=== PATIENT | female | born 1985 | race Hispanic/Latino ===

== ENCOUNTER 2018-04-17 07:44 | Emergency (ER) | payer OTHER, SELFPAY | END 2018-04-17 09:33 | disposition home or self-care (01) | LOC: ERS 07:44 | DX: B34.9 Viral infection, unspecified (principal); F17.210 Nicotine dependence, cigarettes, uncomplicated | CPT/HCPCS: 87804; 99283 ==

== ENCOUNTER 2018-10-29 15:55 | Emergency (ER) | payer SELFPAY ==
[2018-10-29 16:33] LABS: #Eosinphils 0.1 thou/uL (0.0-0.7); #Lymphocytes 2.3 thou/uL (1.20-3.40); #Monocytes 0.6 thou/uL (0.11-0.59); #Neutrophils 5.4 thou/uL (1.40-6.50); %Basophils 0.1 % (0.0-1.0); %Eosinophils 1.5 % (0.0-10.0); %Lymphocytes 27.7 % (21.0-51.0); %Monocytes 6.6 % (0.0-10.0); %Neutrophils 64.1 % (42.0-75.0); Hemoglobin 14.2 g/dL (12.0-16.0); Mean Corpuscular HGB CONC 34.2 g/dL (32.0-36.0); Mean Corpuscular Volume 90.5 fL (78.0-98.0); Mean Platelet Volume 9.5 fL (7.4-10.4); Platelet Count 274 thou/uL (130-400); RBC Distribution Width 11.8 % (11.5-14.5); Red Blood Cell (RBC) Count 4.59 mill/uL (4.20-5.40); White Blood Cell (WBC) Count 8.4 thou/uL (4.8-10.8)
[2018-10-29 16:55] LABS: ALT (SGPT) 22 U/L (8-55); AST (SGOT) 22 U/L (5-34); Albumin 3.9 g/dL (3.5-5.0); Alkaline Phosphatase 97 U/L (40-150); Anion Gap 12 mmol/L (10-20); BUN (Urea Nitrogen) 9 mg/dL (7.0-18.7); Bilirubin, Total 0.6 mg/dL (0.2-1.2); Calc. Creatinine Clearance 0 mL/min (70-130); Calcium 9.2 mg/dL (7.8-10.44); Carbon Dioxide 29 mmol/L (22-29); Chloride 102 mmol/L (98-107); Estimated GFR-MDRD 86; Globulin 2.9 g/dL (2.4-3.5); Glucose 111 mg/dL (70-105); Lipase 17 U/L (8-78); Potassium 3.6 mmol/L (3.5-5.1); Protein, Total 6.8 g/dL (6.0-8.3); Sodium 139 mmol/L (136-145)
[2018-10-29 17:05] LABS: BHCG - Serum Negative (NEGATIVE); Pregs Control Background? CLEAR/WHITE (CLR/WHITE); Pregs Control Bar Appear? YES (CONTROL BAR)
[2018-10-29] MEDS ORDERED: Iopamidol 370 76% 50 ML VIAL FS ONE (17:16)
[2018-10-29] MEDS ORDERED: ISOVUE-370 76%-LOCM 1 ML ONE (17:16)
[2018-10-29 19:13] LABS: Bilirubin Negative (Negative); Blood, Urine Negative (Negative); Glucose, Urine (Dipstick) Negative (Negative); Leukocyte Negative (Negative); Nitrite Negative (Negative); Protein, Urine (Dipstick) Negative (Neg-Trace); Urobilinogen 0.2 mg/dL (Less than 2)
[2018-10-29 19:14] LABS: Clarity Cloudy (Clear)
[2018-10-29] MEDS ORDERED: Ondansetron PF 4 MG/2 ML Vial ONE (21:51)
[2018-10-29] MEDS ORDERED: Morphine 4 MG/ML VIAL ONE (21:51)
--- NOTE | 2018-10-29 22:20 | CT ---
CT abdomen and pelvis with IV and oral contrast HISTORY: Abdomen pain. FINDINGS: Lung bases are clear. Solid organs of the abdomen and pelvis are intact. Urinary bladder is unremarkable. At the central anterior upper abdomen, associated with the inferior aspect of the mid transverse colo n, an oval area of inflammation and fat stranding measures up to 0.7 cm diameter and contains central fat density. There is circumferential wall thickening of the colon at this level. No signific ant diverticula of the colon are apparent elsewhere. No free air or free fluid. IMPRESSION: Short segment inflammation involving and adjacent to the mid transverse colon. Given that there is fat within the area of greatest inflammation, epiploic appendagitis is the favored diagnosis. Underlying neoplastic process cannot be excluded with this appearance. Please consider cyn ntual endoscopic evaluation.
[2018-10-29] MEDS ORDERED: Ketorolac Tromethamine 30 MG/ML VIAL ONE (23:13)
== END 2018-10-29 23:21 | disposition home or self-care (01) ==
LOC: ERS 15:55
DX: K63.89 Other specified diseases of intestine (principal); F17.210 Nicotine dependence, cigarettes, uncomplicated; Z71.6 Tobacco abuse counseling
CPT/HCPCS: 36415; 74177; 80053; 81003; 83690; 84703; 85025; 96361; 96374; 96375; J1885; J2270; J2405; Q9966; Q9967

== ENCOUNTER 2018-10-30 16:09 | Observation (INO) | payer SELFPAY ==
[2018-10-30 16:35] LABS: #Basophils 0.1 thou/uL (0.0-0.2); #Eosinphils 0.1 thou/uL (0.0-0.7); #Lymphocytes 2.2 thou/uL (1.20-3.40); #Monocytes 0.5 thou/uL (0.11-0.59); #Neutrophils 5.6 thou/uL (1.40-6.50); %Basophils 0.8 % (0.0-1.0); %Eosinophils 0.8 % (0.0-10.0); %Lymphocytes 26.4 % (21.0-51.0); %Monocytes 6.3 % (0.0-10.0); %Neutrophils 65.8 % (42.0-75.0); Hemoglobin 14.3 g/dL (12.0-16.0); Mean Corpuscular HGB CONC 33.2 g/dL (32.0-36.0); Mean Corpuscular Hemoglobin 30.1 pg (27.0-31.0); Mean Corpuscular Volume 90.7 fL (78.0-98.0); Platelet Count 294 thou/uL (130-400); RBC Distribution Width 11.8 % (11.5-14.5); Red Blood Cell (RBC) Count 4.75 mill/uL (4.20-5.40); White Blood Cell (WBC) Count 8.4 thou/uL (4.8-10.8)
[2018-10-30 16:56] LABS: ALT (SGPT) 24 U/L (8-55); AST (SGOT) 19 U/L (5-34); Albumin 4.2 g/dL (3.5-5.0); Alkaline Phosphatase 101 U/L (40-150); Anion Gap 11 mmol/L (10-20); BUN (Urea Nitrogen) 7 mg/dL (7.0-18.7); Bilirubin, Total 0.7 mg/dL (0.2-1.2); Calc. Creatinine Clearance 0 mL/min (70-130); Calcium 9.3 mg/dL (7.8-10.44); Carbon Dioxide 23 mmol/L (22-29); Chloride 107 mmol/L (98-107); Estimated GFR-MDRD Greater than 90; Glucose 96 mg/dL (70-105); Lipase 25 U/L (8-78); Potassium 3.9 mmol/L (3.5-5.1); Protein, Total 7.2 g/dL (6.0-8.3); Sodium 137 mmol/L (136-145)
[2018-10-30] MEDS ORDERED: Ketorolac Tromethamine 30 MG/ML VIAL ONE (17:21)
[2018-10-30] MEDS ORDERED: Morphine 4 MG/ML VIAL ONE ×2 (17:21→20:02)
--- NOTE | 2018-10-30 18:56 | PDOC.FPRHP ---
- History of Present Illness Chief Complaint: adominal pain and bloating History of Present Illness: 33 y/o F pt with no know medical problems presents to the ED with X4 days of abdominal pain. She was seen in the ED yesterday when she was diagnosed with Epiploic Appendagitis and sent home with anti-inflammatory medication Naproxen and Tylenol #3. She states her pain was an 8/10 when I evaluated her. Eating increases the pain. She admits to bloating in her abdomen, but denies any N/V/D/Hematemasis/ Hematochezia. Pt denies CP. C/o SOB 2/2 increasing pain. - Allergies/Adverse Reactions Allergies Allergy/AdvReac Type Severity Reaction Status Date / Time No Known Drug Allergies Allergy Verified 10/30/18 20:48 - Home Medications Medication Instructions Recorded Confirmed Type Ibuprofen [Motrin] 600 mg PO Q6H #42 tab 10/31/18 Rx traMADol HCl [Ultram] 100 mg PO Q6H PRN tab 10/31/18 Rx - History PMHx: no medical history known PSHx: none FHx: none Social: denies etoh, tobacco use or drug use. Denies marijuana use. - Review of Systems General: denies: fever/chills, weight/appetite/sleep changes ENT: denies: nasal congestion Respiratory: reports: shortness of breath. denies: cough, congestion Cardiovascular: denies: chest pain, palpitation, edema Gastrointestinal: reports: nausea (yesterday), abdominal pain. denies: vomiting , diarrhea, constipation, GI bleeding Genitourinary: denies: incontinence, dysuria Skin: denies: rashes, lesions Musculoskeletal: denies: pain, tenderness, swelling Neurological: denies: numbness, syncope, seizure, weakness - Vital signs BP: 105/66 HR: 79 RR: 18 Tmax: 98.1 Pox: 99% on RA Wt: 63.5 kg - Physical Exam Constitutional: NAD, awake, alert and oriented, well developed HEENT: normocephalic and atraumatic, PERRLA, EOMI, conjunctiva clear, no scleral icterus, grossly normal vision, grossly normal hearing, MMM, oropharynx clear, good dention Neck: supple, FROM, trachea midline, no LAD, no JVD Chest: no-tender to palpation, no lesions Heart: RRR, normal S1/S2, no murmurs/rubs/gallops, pulses present, no edema Lungs: CTAB, no respiratory distress, good air movement, no rales/rhonchi, no wheezing, no retractions Abdomen: soft, bowel sounds present, no hernias -Abdomen: Tender to palpation in Epigastric, R upper and lower quadrants. Guarding of abdomen. Non-distended and soft Musculoskeletal: normal structure, normal tone, ROM grossly normal Neurological: no focal deficit, normal sensation Skin: no rash/lesions, good turgor, capillary refill <2 seconds, no jaundice Heme/Lymphatic: no unusual bruising or bleeding, no purpura, no petechia Psychiatric: normal mood and affect, good judgment and insight, intact recent and remote memory FMR H&P: Results - Labs Result Diagrams: 10/31/18 07:11 10/31/18 07:11 Lab results: WBC 8.4 thou/uL (4.8-10.8) 10/30/18 16:27 Hgb 14.3 g/dL (12.0-16.0) 10/30/18 16:27 Hct 43.1 % (36.0-47.0) 10/30/18 16:27 MCV 90.7 fL (78.0-98.0) 10/30/18 16:27 Plt Count 294 thou/uL (130-400) 10/30/18 16:27 Neutrophils % 65.8 % (42.0-75.0) 10/30/18 16:27 Sodium 137 mmol/L (136-145) 10/30/18 16:27 Potassium 3.9 mmol/L (3.5-5.1) 10/30/18 16:27 Chloride 107 mmol/L (98-107) 10/30/18 16:27 Carbon Dioxide 23 mmol/L (22-29) 10/30/18 16:27 BUN 7 mg/dL (7.0-18.7) 10/30/18 16:27 Creatinine 0.70 mg/dL (0.6-1.1) 10/30/18 16:27 Glucose 96 mg/dL (70-105) 10/30/18 16:27 Calcium 9.3 mg/dL (7.8-10.44) 10/30/18 16:27 Total Bilirubin 0.7 mg/dL (0.2-1.2) 10/30/18 16:27 AST 19 U/L (5-34) 10/30/18 16:27 ALT 24 U/L (8-55) 10/30/18 16:27 Alkaline Phosphatase 101 U/L (40-150) 10/30/18 16:27 Serum Total Protein 7.2 g/dL (6.0-8.3) 10/30/18 16:27 Albumin 4.2 g/dL (3.5-5.0) 10/30/18 16:27 Lipase 25 U/L (8-78) 10/30/18 16:27 - Radiology Interpretation CT scan - abdomen Status: report reviewed by me (Epiploic Appendagitis) FMR H&P: A/P - Problem List (1) Epiploic appendagitis Current Visit: Yes Status: Acute Code(s): K52.9 - NONINFECTIVE GASTROENTERITIS AND COLITIS, UNSPECIFIED - Plan 33 y/o Admitted to medical obs for Epiploic Appendagitis causing intractable abdominal pain. 1. Epiploic Appendagitis - Most likely diagnosis form radiographic imaging and clinical presentation - General Surgery recommends treatment with anti-inflammatory medications, bland diet and pain control - Toradol 30 mg Q4H PRN, Morphine 2 mg Q4H PRN - Labs normal. No evidence of infection. Code Status: Full Code Diet: regular diet, with bland food modification DVT ppx: SCD's Disposition/LOS: Admitted to medical obs for anticipated less than 2 midnights. FMR H&P: Upper Level - Pertinent history 33 yo female with no PMH presents for evaluation of abdominal pain. Patient was seen in ED yesterday and has had continued symptoms. Please see financial services internship note above for further information. General: Female appears stated age, NAD HEENT: Moist mucous membranes CV: RRR, no murmurs Respiratory: CTA-bilaterally, no wheezing Abdomen: Tenderness to palpation in all quadrants. Guarding present. No rigidity present. Extremities: Moving all four symmetrically, no edema Neuro: No focal deficits Psych: A&Ox3. Responds appropriately - Plan Date/Time: 10/30/18 408 IMatthew MD, have evaluated this patient and agree with findings/ plan as outlined by financial services internship resident. Pertinent changes/additions are listed here. 1. Epiploic appendagitis - Pain control with NSAIDs and opiates - General surgery recommends no intervention and supportive care CODE STATUS: FULL CODE PCP: CC Disposition: Stable, will admit for further pain control and symptom management. Addendum - Attending - Attending Attestation Date/Time: 10/30/181921 I personally evaluated the patient and discussed the management with Dr. Terry. I agree with the History, Examination, Assessment and Plan documented above with any addition or exceptions noted below. The patient presents with intractable abdominal pain. She was seen in the er yesterday and diagnosed with epiploic apendigitis. The nsaid and tylenol 3 were not controlling her pain. She has tenderness to palpation with voluntary guarding in the ruq and epigastric region. Vitals are stable. Will admit for hydration and pain control.
[2018-10-30 19:18] LABS: Bilirubin Negative (Negative); Blood, Urine Negative (Negative); Clarity Clear (Clear); Glucose, Urine (Dipstick) Normal (Negative); Leukocyte Negative Leu/uL (Negative); Nitrite Negative (Negative); Protein, Urine (Dipstick) 10 mg/dL (Neg-Trace); Urobilinogen Normal mg/dL (Less than 2)
[2018-10-30 19:20] LABS: Pregnancy Test - Urine (BHCG) Negative (Negative); Pregu Control Background? CLEAR/WHITE (CLR/WHITE); Pregu Control Bar Appear? YES (CONTROL BAR); Specific Gravity 1.028 (1.002-1.036)
[2018-10-30] MEDS ORDERED: Ondansetron ODT 4 MG TAB PO PRN (20:32)
[2018-10-30] MEDS ORDERED: Ondansetron PF 4 MG/2 ML Vial IVP PRN (20:32)
[2018-10-30 20:47] VITALS: BMI 26.0
[2018-10-30] MEDS: Famotidine 20 MG TAB PO SCH (20:50)
[2018-10-30] MEDS ORDERED: Acetaminophen 325 MG TAB PO PRN (20:51)
[2018-10-30] MEDS ORDERED: HYDROcodone/Acetaminophen 5/325 mg Tablet PO PRN ×2 (20:51)
[2018-10-30] MEDS: Sodium Chloride 0.9% 1,000 ML IV SCH (22:03)
[2018-10-30] MEDS: Morphine 2 MG/ML SYRINGE SLOW IVP PRN (22:04)
[2018-10-30] MEDS: Ketorolac Tromethamine 30 MG/ML VIAL IVP PRN (23:25)
[2018-10-31] MEDS: Morphine 2 MG/ML SYRINGE SLOW IVP PRN (02:43)
[2018-10-31] MEDS ORDERED: Morphine 4 MG/ML VIAL SLOW IVP PRN (03:16)
[2018-10-31] MEDS ORDERED: Morphine 2 MG/ML SYRINGE SLOW IVP SCH (03:30)
[2018-10-31] MEDS: Sodium Chloride 0.9% 1,000 ML IV SCH ×3 (05:12→19:40)
--- NOTE | 2018-10-31 06:52 | PDOC.FM ---
- Subjective Subjective: Pt reports good rest overnight and much improved pain control. No new complaints. No fever/chills - Objective Vital Signs & Weight: Vital Signs (12 hours) Temp Pulse Resp BP BP BP Pulse Ox 10/31/18 04:00 98.0 F 80 20 93/50 L 97 10/31/18 00:00 98.1 F 78 20 99/60 97 10/30/18 20:37 98.1 F 79 18 105/66 99 10/30/18 20:28 98.1 F 79 18 105/66 99 Weight Weight 64.609 kg I&O: 10/29/18 10/30/18 10/31/18 06:59 06:59 06:59 Intake Total 1605 Balance 1605 Result Diagrams: 10/31/18 07:11 10/31/18 07:11 Phys Exam - Physical Examination Constitutional: NAD HEENT: moist MMs, sclera anicteric Neck: supple, full ROM Respiratory: no wheezing, clear to auscultation bilateral Cardiovascular: RRR, no significant murmur Gastrointestinal: soft, positive bowel sounds Musculoskeletal: no edema, pulses present Neurological: normal sensation, moves all 4 limbs Psychiatric: normal affect, A&O x 3 Skin: no rash, normal turgor Dx/Plan (1) Epiploic appendagitis Code(s): K52.9 - NONINFECTIVE GASTROENTERITIS AND COLITIS, UNSPECIFIED Status : Acute - Plan Plan: Epiploic appendagitis A- improving. conservative therapy is desirable. P- Pain control with NSAIDs and Tylenol #3 -transition to PO pain meds as possible -bland diet CODE STATUS: FULL CODE Addendum - Attending - Attending Attestation Date/Time: 10/31/18 [id number] I personally evaluated the patient and discussed the management with Dr. Hood. I agree with the History, Examination, Assessment and Plan documented above with any addition or exceptions noted below. Pt noted better pain control with the 4 mg of morphine. Will continue pain control. Will try oral meds to see if we can still control her pain.
[2018-10-31 07:27] LABS: #Eosinphils 0.2 thou/uL (0.0-0.7); #Lymphocytes 2.2 thou/uL (1.20-3.40); #Monocytes 0.6 thou/uL (0.11-0.59); #Neutrophils 3.1 thou/uL (1.40-6.50); %Basophils 0.4 % (0.0-1.0); %Eosinophils 2.8 % (0.0-10.0); %Lymphocytes 36.5 % (21.0-51.0); %Monocytes 9.3 % (0.0-10.0); %Neutrophils 51.1 % (42.0-75.0); Hemoglobin 12.1 g/dL (12.0-16.0); Mean Corpuscular HGB CONC 33.4 g/dL (32.0-36.0); Mean Corpuscular Hemoglobin 30.5 pg (27.0-31.0); Mean Corpuscular Volume 91.3 fL (78.0-98.0); Mean Platelet Volume 9.2 fL (7.4-10.4); Platelet Count 217 thou/uL (130-400); RBC Distribution Width 11.5 % (11.5-14.5); Red Blood Cell (RBC) Count 3.98 mill/uL (4.20-5.40)
[2018-10-31 07:51] LABS: Anion Gap 8 mmol/L (10-20); BUN (Urea Nitrogen) 6 mg/dL (7.0-18.7); Calc. Creatinine Clearance 133 mL/min (70-130); Calcium 7.7 mg/dL (7.8-10.44); Carbon Dioxide 23 mmol/L (22-29); Chloride 112 mmol/L (98-107); Estimated GFR-MDRD Greater than 90; Glucose 95 mg/dL (70-105); Sodium 139 mmol/L (136-145)
[2018-10-31] MEDS: Famotidine 20 MG TAB PO SCH ×2 (08:45→19:40)
[2018-10-31] MEDS: Ketorolac Tromethamine 30 MG/ML VIAL IVP PRN (08:47)
[2018-10-31] MEDS ORDERED: traMADol HCl 50 MG TAB PO PRN (09:06)
[2018-10-31] MEDS: Morphine 4 MG/ML VIAL IV PRN ×4 (10:41→20:22)
[2018-10-31] MEDS: Ibuprofen 600 MG TAB PO SCH ×2 (14:06→19:40)
[2018-10-31] MEDS ORDERED: Melatonin 3 MG TAB PO SCH (20:45)
[2018-11-01] MEDS: Ibuprofen 600 MG TAB PO SCH ×3 (02:04→14:04)
[2018-11-01] MEDS: Morphine 4 MG/ML VIAL IV PRN (02:12)
[2018-11-01] MEDS: Sodium Chloride 0.9% 1,000 ML IV SCH (02:16)
[2018-11-01] MEDS: Famotidine 20 MG TAB PO SCH (08:18)
[2018-11-01 08:23] VITALS: TEMP 98.3
--- NOTE | 2018-11-01 08:39 | PDOC.FM ---
- Subjective Subjective: Pt reports continued improvement. Pt wants to go home today. Reports that full liquid diet prevents her pain. No new complaints. - Objective Vital Signs & Weight: Vital Signs (12 hours) Temp Pulse Resp BP Pulse Ox 11/01/18 08:17 98.3 F 61 16 108/75 99 11/01/18 04:53 98.2 F 62 20 113/72 98 10/31/18 23:48 98.2 F 63 20 99/65 100 Weight Weight 64.609 kg I&O: 10/31/18 11/01/18 11/02/18 06:59 06:59 06:59 Intake Total 1605 3972 Balance 1605 3972 Result Diagrams: 10/31/18 07:11 10/31/18 07:11 Phys Exam - Physical Examination Constitutional: NAD HEENT: moist MMs, sclera anicteric Neck: supple, full ROM Respiratory: no wheezing, clear to auscultation bilateral Cardiovascular: RRR, no significant murmur Gastrointestinal: soft, no distention, positive bowel sounds Musculoskeletal: no edema, pulses present Neurological: normal sensation, moves all 4 limbs Psychiatric: normal affect, A&O x 3 Skin: normal turgor, cap refill <2 seconds Dx/Plan (1) Epiploic appendagitis Code(s): K52.9 - NONINFECTIVE GASTROENTERITIS AND COLITIS, UNSPECIFIED Status : Acute - Plan Plan: Epiploic appendagitis A- improving. conservative therapy is desirable. P- Pain controlled with morphine -transition to PO pain meds as possible -full liquid diet -will plan to DC once controlled with PO pain meds. Possibly today. CODE STATUS: FULL CODE Addendum - Attending - Attending Attestation Date/Time: 11/01/18619 I personally evaluated the patient and discussed the management with Dr. Hood. I agree with the History, Examination, Assessment and Plan documented above with any addition or exceptions noted below. Pt is feeling a lot better this morning. She notes that liquids don't cause the abdominal pain that solid food does. Will proceed with full liquid diet. She wants to go home. Will see if tylenol 3 and nsaids can control pain and hopefully d/c this afternoon.
[2018-11-01] MEDS: Acetaminophen/Codeine 30-300mg Tablet PO PRN ×2 (12:40→16:55)
[2018-11-01] MEDS ORDERED: Ketorolac Tromethamine 30 MG/ML VIAL IM SCH (15:00)
[2018-11-01] MEDS ORDERED: Ketorolac Tromethamine 60 MG/2 ML VIAL IM SCH (15:00)
[2018-11-01 17:26] VITALS: BP 104/69
--- NOTE | 2018-11-02 15:04 | DIS ---
DATE OF ADMISSION: 10/30/2018 DATE OF DISCHARGE: 11/01/2018 ADMITTING ATTENDING: Carmen Norman MD RESIDENT: Tawanda Hood MD CONSULTS: None. PROCEDURE PERFORMED: Abdominal CT scan. IMPRESSION: Epiploic appendagitis. DISCHARGE MEDICATIONS: 1. Ibuprofen 600 mg p.o. q.6 hours p.r.n. 2. Tylenol No. 3 two tabs p.o. q.6 hours p.r.n. DISCONTINUED MEDICATIONS: None. PRIMARY DIAGNOSIS: Epiploic appendagitis. SECONDARY DIAGNOSIS: None. HISTORY OF PRESENT ILLNESS/HOSPITAL COURSE: This is a 33-year-old female, who presented to the emergency room with intractable abdominal pain. Abdominal workup was completed including abdominal CT scan, which was significant for epiploic appendagitis. It was recommended to be managed conservatively and for surgery to be avoided and so, the patient was placed on anti-inflammatory therapy with Toradol and morphine for pain control. Basically, her pain medications were weaned to p.o. Tylenol No. 3 and p.o. ibuprofen. All lab work and vital signs were stable throughout hospitalization and patient was discharged home. DISPOSITION: Stable. DISCHARGE INSTRUCTIONS: 1. Location: Home. 2. Diet: Full liquid diet, advance as tolerated. 3. Activity: As tolerated. 4. Followup: Followup with primary care provider in 7 days. Job ID: [id number]
== END 2018-11-01 18:04 | disposition home or self-care (01) ==
LOC: ERS 16:09 → T4-B 20:40
PROVIDERS: ADMIT Family Medicine; ATTEND Family Medicine
DX: K63.89 Other specified diseases of intestine (principal); Z88.5 Allergy status to narcotic agent
CPT/HCPCS: 36415; 80048; 80053; 81003; 81025; 83690; 85025; 96361; 96372; 96374; 96375; 96376; G0378; J1885; J2270